=== PATIENT | male | born 1980 | race Hispanic/Latino ===

== ENCOUNTER 2024-10-17 23:46 | Emergency (ER) | payer BC ==
[~2024-10-17] VITALS: Ht 177.8 cm; Wt 106.1 kg
[2024-10-17 23:49] VITALS: BP 166/108; PULSE 102; RESP 20; TEMP 98
[2024-10-18] MEDS ORDERED: CYCL10TA16 PO (00:17)
[2024-10-18] MEDS ORDERED: KETO10TA2 PO (00:17)
--- NOTE | 2024-10-18 00:18 | ERN ---
General Chief Complaint: Back Pain-No Injury Stated Complaint: C/O LEFT LOWER BACK PAIN RADIATING DOWN LEFT LEG Time Seen by MD: 00:05 Time Seen by Midlevel: 00:05 Source: patient History of Present Illness Initial Comments Patient is a 44-year-old male with a past medical history of sciatica presenting to the emergency department with left lower back pain that radiates down to his left gluteal area and down his left leg. The pain started earlier today. He has been taking Tylenol and Motrin at home with little to no relief. Denies any calf pain or swelling. Denies any other symptoms at this time. Patient states his last sciatic flare-up was approximately two years ago. Allergies: Coded Allergies: No Known Allergies (Unverified Allergy, Unknown, 10/17/24) Home Meds Active Scripts Cyclobenzaprine HCl (Flexeril) 10 Mg Tab, 10 MG PO TID for muscle sstiffness, #14 TAB 0 Refills Prov:DEVEN CHASE 10/18/24 Ketorolac Tromethamine (Ketorolac Tromethamine) 10 Mg Tablet, 1 TAB PO TID for pain for 5 Days, #15 TAB 0 Refills Prov:DEVEN CHASE 10/18/24 Past Medical History Past Medical History: Other Medical History Other: HX OF SCIATICA NERVE PAIN Past Surgical History: None ROS Dictation CONSTITUTIONAL: Negative except for HPI HEAD/FACE: Negative except for HPI EENT: Negative except for HPI RESPIRATORY: Negative except for HPI GASTROINTESTINAL/ABDOMINAL: Negative except for HPI GENITOURINARY: Negative except for HPI MUSCULOSKELETAL: Negative except for HPI INTEGUMENTARY: Negative except for HPI NEUROLOGICAL/PSYCH: Negative except for HPI HEMATOLOGIC/LYMPHATIC: Negative except for HPI All Systems Negative, Except as noted above. 13 point review of systems assessed and all negative except for above. Physical Exam Physical Exam Dictation Vital Signs reviewed General Appearance: Alert, oriented x 3, no acute distress, well developed, nourished. Head and Face: non-traumatic. Eyes: PERRL, pink conjunctivas, eyelid no trauma, anterior chamber with arcus senilis. Ears: Pinnas intact and no signs of trauma or erythema ear canals clear and no discharge TM no erythema Nose: No discharge, no bleeding. Oropharynx: Mouth normal, tongue pink, pharynx clear,no erythema, tonsils no exudates, no abscesses noted, mucous membrane moist Neck: Supple, non-tender, no thyromegaly, no masses, no JVD, no bruits Breast:Deferred Chest:No tenderness, no crepitus, no paradoxical movement, no retractions Lungs:Clear, well-ventilated, symmetric, no rales, no wheezing, no rhonchi, no stridor, good breath sounds bilaterally Heart: Regular rate, regular rhythm, no murmur, no gallops Vascular: no peripheral edema, Abdomen: Soft, positive bowel sounds, nondistended, no guarding, nontender, no rebound, no masses no hepatomegaly, no splenomegaly, no Jeffries's sign, no hernias. Rectal: Deferred Genital: Deferred Neurological: Normal speech, motor function intact, sensory function intact Musculoskeletal: Neck nontender, full range of motion, back nontender, full range of motion, Extremities: nontender, full range of motion Skin: Color pink, dry, no turgor, no rash, no lacerations, no abrasions, no contusions. Lymphatic: Deferred MDM MDM: Patient is a 44-year-old male with a past medical history of sciatica presenting to the emergency department with left lower back pain that radiates down to his left gluteal area and down his left leg. The pain started earlier today. He has been taking Tylenol and Motrin at home with little to no relief. Denies any calf pain or swelling. Denies any other symptoms at this time. Patient states his last sciatic flare-up was approximately two years ago. On physical examination patient was able to ambulate from the triage room into the examination room. He does appear to be uncomfortable secondary to pain. He specifically denies any urinary/bowel incontinence. Denies any numbness/tingling to bilateral lower extremities. Denies any focal weakness to bilateral lower extremities. On physical examination patient has full range of motion of bilateral hips and knees. Sensation is intact bilaterally. Distal pulses are present bilaterally. There is a good DP/PT pulse to the left leg. There is a positive straight leg test to the left side. There are no red flag symptoms. Patient has 5/5 strength to bilateral lower extremities. Symptoms are consistent with sciatica. Patient was given pain medication in the emergency department and will be discharged home with supportive management. Return precautions discussed Differential diagnosis: Sciatica, lumbar strain, There are no social concerns with this patient. Prescription drug management Prescriptions will include: Toradol and Flexeril Medical management and examination interpretation discussions were had by me with other qualified healthcare professionals as indicated for the patient's care. ED Course Orders Procedure Category Date Status Time Gabapentin 300 Mg Cap PHA 10/18/24 Complete (Neurontin 300 Mg 00:30 Ketorolac PHA 10/18/24 Complete Tromethamine 30mg/Ml 00:30 Orphenadrine Citrate PHA 10/18/24 Complete (Norflex) 00:30 Current Medications Medications (Trade) Dose Ordered Sig/Mame Route PRN Reason Start Time Stop Time Status Last Admin Dose Admin Gabapentin (NEURontin 300 MG CAP) 300 mg ONCE PO 10/18/24 00:30 10/18/24 00:53 DC 10/18/24 00:23 Ketorolac Tromethamine (toRADol) 30 mg ONCE ONCE IM 10/18/24 00:30 10/18/24 00:31 DC 10/18/24 00:23 Orphenadrine Citrate (Norflex) 60 mg ONCE ONCE IM 10/18/24 00:30 10/18/24 00:31 DC 10/18/24 00:23 Vital Signs Date Time Temp Pulse Resp B/P (MAP) Pulse Ox O2 Delivery O2 Flow Rate FiO2 10/17/24 23:49 98.1 102 20 166/108 96 Room Air DX & DISP Disposition: Discharge Departure Impression: Primary Impression: Sciatica, left side Condition: Stable Scripts Cyclobenzaprine HCl (Flexeril) 10 Mg Tab 10 MG PO TID for muscle sstiffness, #14 TAB 0 Refills Prov: DEVEN CHASE 10/18/24 Ketorolac Tromethamine (Ketorolac Tromethamine) 10 Mg Tablet 1 TAB PO TID for pain for 5 Days, #15 TAB 0 Refills Prov: DEVEN CHASE 10/18/24 Additional Instructions: Your physical examination is consistent with sciatica. You were given pain medication in the emergency department. I have given you an outpatient follow up with an exchange specialist for further evaluation. I have given you a prescription for ketorolac and Flexeril. Flexeril is a muscle relaxer please avoid taking this medication before operating a vehicle or any heavy machinery. It is advised that you take this medication at night. Please follow up with your primary care doctor. Return to the ER if develop any new or worsening symptoms Referrals: SELF,REFERRAL (PCP) Time of Disposition: 00:15 I have reviewed the case, and I agree with, Diagnosis and Plan I performed the substantive portion of the visit. I have reviewed and personally made and approve the management plan that is documented in the note by myself or the LC. I acknowledge for responsibility for the patient's management plan. DEVEN CHASE Oct 18, 2024 00:18
[2024-10-18] MEDS: ORPHENADRINE 60MG/2ML IM ONE (00:23)
[2024-10-18] MEDS: ketOROlac 30MG VIAL (30MG/ML) IM ONE (00:23)
[2024-10-18] MEDS: GABAPENTIN 300 MG CAPSULE PO SCH (00:23)
== END 2024-10-18 00:53 | disposition home or self-care (01) ==
LOC: EDH 23:46
DX: M54.42 Lumbago with sciatica, left side (principal); X58.XXXA Exposure to other specified factors, initial encounter; Y93.89 Activity, other specified; Y92.89 Other specified places as the place of occurrence of the external cause; Y99.8 Other external cause status
CPT/HCPCS: 99284; 96372 ×2; J1885; J2360

== ENCOUNTER 2024-12-07 18:56 | Emergency (ER) | payer BC ==
[~2024-12-07] VITALS: Ht 175.3 cm; Wt 104.3 kg
[~2024-12-07 18:56] MED LIST: CYCL10TA16 PO; KETO10TA2 PO
[2024-12-07] MEDS: TRIAMCINOLONE ACETONIDE 40 MG/ML 1ML VIAL IM SCH (20:35)
[2024-12-07] MEDS: ketOROlac 60 MG VIAL (30MG/ML) IM SCH (20:35)
[2024-12-07] MEDS: ORPHENADRINE 60MG/2ML IM SCH (20:35)
[2024-12-07 20:58] LABS: BASOPHILS # (AUTO) 0.02 K/uL (0.00-0.20); BASOPHILS % (AUTO) 0.1 % (0.0-5.0); EOSINOPHILS # (AUTO) 0.03 K/uL (0.00-0.70); EOSINOPHILS % (AUTO) 0.2 % (0.0-8.0); HEMATOCRIT 37.7 % (42-54); IMMATURE GRANULOCYTE ABSOLUTE 0.18 K/uL (0-1); LYMPHOCYTES # (AUTO) 1.9 K/uL (1.0-4.8); LYMPHOCYTES % (AUTO) 10.7 % (21.0-51.0); MEAN CORPUSCULAR HEMOGLOBIN 32.2 pg (27.0-33.0); MEAN CORPUSCULAR HGB CONC 31.6 g/dL (32.0-36.0); MEAN CORPUSCULAR VOLUME 101.9 fL (79-99); MONOCYTES # (AUTO) 0.8 K/uL (0.1-1.0); MONOCYTES % (AUTO) 4.7 % (3.0-13.0); NEUTROPHILS # (AUTO) 14.6 K/uL (1.8-7.7); NEUTROPHILS % (AUTO) 83.3 % (40.0-77.0); PLATELET COUNT (AUTO) 239 K/uL (130-400); WHITE BLOOD COUNT (AUTO) 17.5 K/uL (4.8-10.8)
[2024-12-07 21:09] LABS: CREATININE 1.1 mg/dL (0.5-1.3); POTASSIUM 3.5 mmol/L (3.5-5.1)
[2024-12-07 21:31] LABS: B-TYPE NATRIURETIC PEPTIDE 23 pg/mL (0-100)
[2024-12-07] MEDS: ondanSETRON 4MG INJ IVP ONE (21:41)
[2024-12-07] MEDS: morPHINE 4 MG SYG IVP ONE (21:41)
[2024-12-07 23:07] LABS: APPEARANCE,URINE CLEAR (CLEAR); BILIRUBIN,URINE NEGATIVE (NEGATIVE); COLOR,URINE YELLOW (YELLOW); GLUCOSE, URINE (UA) NEGATIVE (NEGATIVE); KETONES,URINE NEGATIVE (NEGATIVE); LEUKOCYTE ESTERASE ,URINE NEGATIVE Leu/uL (NEGATIVE); NITRATE,URINE NEGATIVE (NEGATIVE); OCCULT BLOOD,URINE NEGATIVE (NEGATIVE); PH,URINE 5.5 (5.0-8.0); PROTEIN,URINE 20 mg/dL (NEGATIVE)
[2024-12-07 23:08] LABS: ADD UA MICROSCOPIC YES
[2024-12-07 23:10] LABS: MUCUS,URINE FEW LPF (None Seen); SQUAMOUS EPITHELIAL CELL,UR RARE /HPF (0-2); WBC,URINE 0-1 /HPF (0-1)
[2024-12-07 23:14] LABS: AMPHET/METH SCREEN,URINE NEGATIVE (NEGATIVE); BARBITURATE SCREEN, URINE NEGATIVE (NEGATIVE); BENZODIAZEPINES SCREEN,URINE NEGATIVE (NEGATIVE); CANNABINOID SCREEN,URINE NEGATIVE (NEGATIVE); COCAINE SCREEN,URINE POSITIVE (NEGATIVE); OPIATE SCREEN,URINE POSITIVE (NEGATIVE); PHENCYCLIDINE SCREEN,URINE NEGATIVE (NEGATIVE)
[2024-12-07] MEDS: morPHINE 2 MG SYG IV ONE (23:36)
[2024-12-07] MEDS ORDERED: CYCL10TA16 PO (23:37)
[2024-12-07] MEDS ORDERED: PRED20TA3 PO (23:37)
[2024-12-07] MEDS ORDERED: KETO10TA2 PO (23:37)
--- NOTE | 2024-12-07 23:38 | ERN ---
ED Note History of Present Illness Stated Complaint: NERVE FLARE UP Chief Complaint: Lower Extremity Pain/Injury Time Seen by MD: 19:00 Time Seen by Midlevel: 19:00 Dictation: The patient is a 44-year-old male with a history of gout, sciatic nerve pain who presents to the emergency department with complaints of left buttocks pain radiating down his left leg onset two days ago. Patient reports he is having a flare-up. Patient also reports that he has not been taking his gout medication for a few months due to insurance purposes. Patient reports no urinary or fecal incontinence. Denies any trauma. Denies any fevers. Patient reports lower extremity swelling onset a week ago. Denies any shortness of breath or chest pain. Patient is a industrial truck operator. Allergies: Coded Allergies: No Known Allergies (Unverified Allergy, Unknown, 10/17/24) Home Meds Active Scripts Cyclobenzaprine HCl (Flexeril) 10 Mg Tab, 10 MG PO TID for muscle sstiffness, #14 TAB 0 Refills Prov:DEVEN CHASE 10/18/24 Ketorolac Tromethamine (Ketorolac Tromethamine) 10 Mg Tablet, 1 TAB PO TID for pain for 5 Days, #15 TAB 0 Refills Prov:DEVEN CHASE 10/18/24 Past Medical History Past Medical History: Other Additional Past Medical Hx: HX OF SCIATICA NERVE PAIN, GOUT Surgical History: None RN Note Reviewed/Agreed w/PFSH: Yes Review of System Dictation Constitutional: Negative for fever,chills, and weight loss Eyes: Negative for injury, pain,redness, and discharge ENT: Negative for injury,pain or swelling Cardiovascular: Negative for chest pain, palpitations, and edema Respiratory: Negative for shortness of breath, cough, and wheezing, Abdomen/GI: Negative for abdominal pain, nausea, vomiting, diarrhea, and const ipation Back: Negative for injury and pain : Negative for injury, bleeding and discharge MS/Extremity: Negative for injury and deformity positive for left buttocks. lower extremity pain Skin: Negative for rash, and discoloration Neuro: Negative for headache, weakness, numbness, tingling, and seizure Psych: Negative for suicide ideation, homicidal ideation, and hallucinations Initial Vital Sign VS Vital Signs Date Time Temp Pulse Resp B/P (MAP) Pulse Ox O2 Delivery O2 Flow Rate FiO2 12/07/24 18:57 98.8 100 18 113/82 98 Room Air Physical Exam Dictation Vital Signs reviewed General Appearance: Alert, oriented x 3, no acute distress, well developed, nourished. Head and Face: non-traumatic. Eyes: PERRL, pink conjunctivas, eyelid no trauma, anterior chamber with arcus senilis. Ears: Pinnas intact and no signs of trauma or erythema ear canals clear and no discharge TM no erythema Nose: No discharge, no bleeding. Oropharynx: Mouth normal, tongue pink. pharynx clear,no erythema, tonsils no exudates, no abscesses noted, mucous membrane moist Neck: Supple, non-tender, no thyromegaly, no masses, no JVD, no bruits Breast:Deferred Chest:No tenderness, no crepitus, no paradoxical movement, no retractions Lungs:Clear, well-ventilated, symmetric, no rales, no wheezing, no rhonchi, no stridor, good breath sounds bilaterally Heart: Regular rate, regular rhythm, no murmur, no gallops Vascular: Bilateral 2+ pitting edema, dorsalis pedis 2+ Abdomen: Soft, positive bowel sounds, nondistended, no guarding, nontender, no rebound, no masses no hepatomegaly, no splenomegaly, no Jeffries's sign, no hernias. Rectal: Deferred Genital: Deferred Neurological: Normal speech, motor function intact, sensory function intact Musculoskeletal: Neck nontender, full range of motion, back nontender, full range of motion, Extremities: nontender, full range of motion , limited range of motion to left lower extremity, tenderness to buttocks upon palpation, erythema to lower extremities Skin: Color pink, dry, no turgor, no rash, no lacerations, no abrasions, no contusions. Lymphatic: Deferred Results (Laboratory/Radiology) Laboratory/Radiology Laboratory Tests Test 12/07/24 20:41 12/07/24 22:41 White Blood Count 17.5 K/uL (4.8-10.8) H Red Blood Count 3.70 MIL/uL (4.50-6.20) L Hemoglobin 11.9 g/dL (14.0-18.0) L Hematocrit 37.7 % (42-54) L Mean Corpuscular Volume 101.9 fL (79-99) H Mean Corpuscular Hemoglobin 32.2 pg (27.0-33.0) Mean Corpuscular Hemoglobin Concent 31.6 g/dL (32.0-36.0) L Red Cell Distribution Width 15.0 % (11.0-15.5) Platelet Count 239 K/uL (130-400) Mean Platelet Volume 9.7 fL (7.5-10.5) Immature Granulocyte % (Auto) 1.0 % (0-1) Neutrophils (%) (Auto) 83.3 % (40.0-77.0) H Lymphocytes (%) (Auto) 10.7 % (21.0-51.0) L Monocytes (%) (Auto) 4.7 % (3.0-13.0) Eosinophils (%) (Auto) 0.2 % (0.0-8.0) Basophils (%) (Auto) 0.1 % (0.0-5.0) Neutrophils # (Auto) 14.6 K/uL (1.8-7.7) H Lymphocytes # (Auto) 1.9 K/uL (1.0-4.8) Monocytes # (Auto) 0.8 K/uL (0.1-1.0) Eosinophils # (Auto) 0.03 K/uL (0.00-0.70) Basophils # (Auto) 0.02 K/uL (0.00-0.20) Absolute Immature Granulocyte (auto 0.18 K/uL (0-1) Nucleated Red Blood Cells 0.0 % (0.0-0.19) Sodium Level 138 mmol/L (136-145) Potassium Level 3.5 mmol/L (3.5-5.1) Chloride Level 101 mmol/L (101-111) Carbon Dioxide Level 29 mmol/L (21-32) Blood Urea Nitrogen 27 mg/dL (7-18) H Creatinine 1.1 mg/dL (0.5-1.3) Glomerular Filtration Rate Calc 84 mL/min (>90) Random Glucose 124 mg/dL (70-105) H Uric Acid 9.4 mg/dL (2.6-7.2) H Total Calcium 9.0 mg/dL (8.5-10.1) B-Type Natriuretic Peptide 23 pg/mL (0-100) Urine Color YELLOW (YELLOW) Urine Appearance CLEAR (CLEAR) Urine pH 5.5 (5.0-8.0) Urine Specific [place] 1.029 (1.001-1.031) Urine Protein 20 mg/dL (NEGATIVE) H Urine Glucose (UA) NEGATIVE mg/dL (NEGATIVE) Urine Ketones NEGATIVE mg/dL (NEGATIVE) Urine Occult Blood NEGATIVE (NEGATIVE) Urine Nitrate NEGATIVE (NEGATIVE) Urine Bilirubin NEGATIVE mg/dL (NEGATIVE) Urine Urobilinogen 2.0 mg/dL (0.2-1.0) H Urine Leukocyte Esterase NEGATIVE [place]/uL Urine RBC 2-5 /HPF (0-1) H Urine WBC 0-1 /HPF (0-1) Urine Squamous Epithelial Cells RARE /HPF (0-2) Urine Bacteria None /HPF (None Seen) Urine Opiates Screen POSITIVE (NEGATIVE) H Urine Barbiturates Screen NEGATIVE (NEGATIVE) Urine Phencyclidine Screen NEGATIVE (NEGATIVE) Urine Amphetamines Screen NEGATIVE (NEGATIVE) Urine Benzodiazepines Screen NEGATIVE (NEGATIVE) Urine Cocaine Screen POSITIVE (NEGATIVE) H Urine Marijuana (THC) Screen NEGATIVE (NEGATIVE) Labs Reviewed?: Yes ED Course ED Course Orders Procedure Category Date Status Time Us Venous Doppler US 12/07/24 Taken Bilateral 19:21 Triamcinolone Acet PHA 12/07/24 In Process 40mg/Ml 1ml (Kenalog 19:30 Orphenadrine Citrate PHA 12/07/24 In Process (Norflex) 19:30 Ketorolac 60mg/2ml PHA 12/07/24 In Process (Toradol 60mg/2ml) 19:30 B-Type Natriuretic LAB 12/07/24 Complete Peptide 19:21 Cbc With Differential LAB 12/07/24 Complete 19:21 Basic Metabolic Panel LAB 12/07/24 Complete 19:21 Urinalysis Profile LAB 12/07/24 Complete 21:06 Drug Screen Urine LAB 12/07/24 Complete 21:06 Ondansetron 4mg Inj PHA 12/07/24 Complete (Zofran 4mg Inj) 22:00 Morphine 4mg Syg PHA 12/07/24 Complete (Morphine 4mg Syg) 22:00 Uric Acid LAB 12/07/24 Complete 22:53 Morphine 2mg Syg PHA 12/07/24 Logged (Morphine 2mg Syg) 23:30 Current Medications Medications (Trade) Dose Ordered Sig/Mame Route PRN Reason Start Time Stop Time Status Last Admin Dose Admin Ketorolac Tromethamine (toRADol 60MG/ 2ML) 60 mg ONCE IM 12/07/24 19:30 12/07/24 23:30 12/07/24 20:35 Morphine Sulfate (morPHINE 2MG SYG) 2 mg ONCE ONCE IM 12/07/24 23:30 12/07/24 23:31 UNV Morphine Sulfate (morPHINE 4MG SYG) 4 mg ONCE ONCE IVP 12/07/24 22:00 12/07/24 22:01 DC 12/07/24 21:41 Ondansetron HCl (zoFRAN 4MG INJ) 4 mg ONCE ONCE IVP 12/07/24 22:00 12/07/24 22:01 DC 12/07/24 21:41 Orphenadrine Citrate (Norflex) 60 mg ONCE IM 12/07/24 19:30 12/07/24 23:30 12/07/24 20:35 Triamcinolone Acetonide (Kenalog 40) 40 mg ONCE IM 12/07/24 19:30 12/07/24 23:30 12/07/24 20:35 Vital Signs Date Time Temp Pulse Resp B/P (MAP) Pulse Ox O2 Delivery O2 Flow Rate FiO2 12/07/24 18:57 98.8 100 18 113/82 98 Room Air Medical Decision Making MDM The patient is a 44-year-old male with a history of gout, sciatic nerve pain who presents to the emergency department with complaints of left buttocks pain radiating down his left leg onset two days ago. Patient reports he is having a flare-up. Patient also reports that he has not been taking his gout medication for a few months due to insurance purposes. Patient reports no urinary or fecal incontinence. Denies any trauma. Denies any fevers. Patient reports lower extremity swelling onset a week ago. Denies any shortness of breath or chest pain. Patient is a industrial truck operator. CBC showed leukocytosis, mild macrocytic anemia, chemistry showed no electrolyte imbalance. Ultrasound revealed no DVT. Some superficial bilateral thrombus. Uric acid elevated. Urinalysis no UTI Patient was giving pain medication. Pain improved. Patient instructed to follow up with PCP and to restart his allopurinol. Patient instructed to return if symptoms worsen. Case discussed with Dr. Barcenas who agreed the patient can be discharged. Leukocytosis probably related to gout flare. Differential diagnosis: Sciatic nerve pain, gout flare-up, dehydration, Need for hospitalization: Patient does not meet criteria for hospitalization. There are no social concerns with this patient. DX & DISP Disposition: Discharge Departure Impression: Primary Impression: Sciatica, left side Additional Impression: Gout attack Condition: Stable Scripts Prednisone (Prednisone) 20 Mg Tablet 1 TAB PO DAILY for 5 Days, #5 TAB 0 Refills Prov: YOLI JUNG SHARRI 12/07/24 Ketorolac Tromethamine (Ketorolac Tromethamine) 10 Mg Tablet 1 TAB PO Q6HPRN PRN for pain for 5 Days, #20 TAB 0 Refills Prov: YOLI JUNG RAW SAMPLER 12/07/24 Cyclobenzaprine HCl (Flexeril) 10 Mg Tab 10 MG PO TID for muscle sstiffness, #14 TAB 0 Refills Prov: YOLI JUNG SHARRI 12/07/24 Additional Instructions: Please follow up with your primary doctor in 1-2 days. If symptoms worsen please return to ER. Take medications as prescribed. FOLLOW-UP WITH PRIMARY CARE PROVIDER IN 1 TO 2 DAYS. TAKE MEDICATIONS DIRECTED HERE IN THE EMERGENCY ROOM. OKAY TO CONTINUE HOME MEDICATIONS UNLESS OTHERWISE DISCUSSED DURING YOUR VISIT IN THE EMERGENCY ROOM TODAY. RETURN TO YOUR NEAREST EMERGENCY ROOM IF SYMPTOMS WORSEN OR IF THERE IS NO IMPROVEMENT. CALL 911 IF YOU NEED IMMEDIATE ASSISTANCE. TAKE TYLENOL OR MOTRIN [id number] NEEDED AND IF NO CONTRAINDICATIONS ARE PRESENT. INCREASE ORAL HYDRATION. A WOUND CULTURE OR URINE CULTURE WAS ORDERED HERE IN THE EMERGENCY ROOM DEPARTMENT PLEASE FOLLOW-UP WITH PRIMARY CARE PROVIDER AND ADVISE THEM TO GET REPEAT PORTS FROM OUR FACILITY. IF YOU HAD ANY MAHESH WRAP/SPLINTS THAT WERE APPLIED HERE, PLEASE DO NOT REMOVE THEM UNTIL YOU SEE YOUR PRIMARY CARE OR SPECIALTY. Referrals: SELF,REFERRAL (PCP) Time of Disposition: 23:33 I have reviewed the case, and I agree with, Diagnosis and Plan YOLI JUNG SHARRI Dec 07, 2024 23:38
[2024-12-07 23:40] VITALS: BP 119/74; PULSE 90; RESP 19; TEMP 98.4; O2SAT 96
--- NOTE | 2024-12-08 00:30 | HMCIMG ---
US VENOUS DOPPLER BILATERAL HISTORY: Swelling COMPARISON: None TECHNIQUE: Bilateral lower extremity venous Doppler ultrasound study was performed. FINDINGS: The common femoral, femoral, popliteal, and posterior tibial veins are visualized. Normal flow with compressibilities are demonstrated. Noncompressible thrombi are seen in the superficial calf veins bilaterally consistent with superficial thrombophlebitis. IMPRESSION: 1. No evidence of deep venous thrombosis is seen. Noncompressible thrombi are seen in the superficial calf veins bilaterally consistent with superficial thrombophlebitis.
== END 2024-12-07 23:44 | disposition home or self-care (01) ==
LOC: EDH 18:56
DX: M10.9 Gout, unspecified (principal); M54.32 Sciatica, left side; M79.605 Pain in left leg; Z79.899 Other long term (current) drug therapy
CPT/HCPCS: 99284; 93970; 96374; 96375; 84550; 80048; 83880; 80305; 85025; 36415; 96376; 81001; 96372; J1885; J2270 ×2; J2405; J3301; J2360